=== PATIENT | male | born 1945 | race Caucasian/White ===

== ENCOUNTER 2022-09-14 13:55 | Emergency (ER) | payer OTHER, MEDICARE, SELFPAY ==
[2022-09-14 14:17] VITALS: BP 175/78; PULSE 66; RESP 16; TEMP 36.8; O2SAT 94; BMI 26.6
--- NOTE | 2022-09-14 14:23 | DI.RAD.S_ITS ---
PROCEDURE: XR HAND LT MIN 3V INDICATIONS: deep laceration with saw TECHNIQUE: 3 views of the hand(s) acquired. COMPARISON: None. FINDINGS: Bones: No fractures or dislocations. Carpal bones are normally aligned. No suspicious bony lesions. Degenerative arthritis at the 1st carpometacarpal joint. Soft tissues: No suspicious soft tissue calcifications. The in our eminence soft tissue laceration. No soft tissue gas or radiopaque foreign body. IMPRESSION: No evidence acute bony abnormality. Dictated by: Americo Amezquita M.D. on 09/14/2022 at 14:56 Approved by: Americo Amezquita M.D. on 09/14/2022 at 14:57
[2022-09-14] MEDS: LIDOCAINE 1% (PF) 5 ML INJ (15:14)
[2022-09-14 15:31] VITALS: BP 104/57; PULSE 48; RESP 18; O2SAT 99
[2022-09-14] MEDS: ONDANSETRON 4 MG ODT PO (15:31)
--- NOTE | 2022-09-14 16:02 | ED.WOUNDLAC ---
HPI - Wound/Laceration <Belgica Grimaldo PA-C - Last Filed: 09/15/22 10:12> General Chief Complaint: Wound/Laceration Stated Complaint: laceration hand t-0 Time Seen by Provider: 09/14/22 14:26 Source: patient Mode of arrival: Ambulatory History of Present Illness HPI narrative: 77-year-old male presents to the ED status post a laceration sustained just prior to arrival. Patient was at work using a table saw, when he accidentally injured his left palm. Patient denies numbness, tingling, weakness. Patient endorses he can move all his fingers normally. Bleeding has been controlled with pressure. Patient's tetanus is up-to-date. Related Data Previous Rx's Medication Instructions Recorded sulfamethoxazole 800 1 tab PO BID #20 tabs 09/17/22 mg-trimethoprim 160 mg tablet (Bactrim DS) Allergies Allergy/AdvReac Type Severity Reaction Status Date / Time Tetracyclines AdvReac Mild Verified 09/17/22 11:00 Review of Systems <Belgica Grimaldo PA-C - Last Filed: 09/15/22 10:12> Review of Systems ROS Unobtainable: All systems reviewed & are unremarkable except as noted in HPI and below Constitutional Constitutional: Denies chills, Denies fatigue, Denies fever(s), Denies frequent falls, Denies lethargy and Denies weakness Eyes Eyes: Denies change in vision, Denies eye discharge, Denies irritation and Denies loss of vision ENT Ears, Nose, Mouth, and Throat: Denies change in voice, Denies dizziness, Denies neck pain, Denies sore throat and Denies throat swelling Cardiovascular Cardiovascular: Denies chest pain, Denies irregular heart rhythm, Denies lightheadedness, Denies palpitations, Denies dyspnea, Denies dyspnea on exertion and Denies orthopnea Respiratory Respiratory: Denies cough, Denies dyspnea, Denies dyspnea on exertion and Denies wheezing Gastrointestinal Gastrointestinal: Denies abdominal pain, Denies change in bowel habits, Denies diarrhea, Denies nausea and Denies vomiting Genitourinary Genitourinary: Denies hematuria, Denies flank pain, Denies urinary incontinence and Denies urinary urgency Musculoskeletal Musculoskeletal: Denies back pain, Denies muscle weakness, Denies neck pain, Denies numbness and Denies tingling Integumentary/Breasts Skin/Breast: Denies pruritus, Denies erythema, Denies rash and Reports wounds Neurologic Neurologic: Denies behavioral changes, Denies confusion, Denies dizziness, Denies frequent falls, Denies loss of vision, Denies numbness, Denies tingling and Denies weakness Psychiatric Psychiatric: Denies anxiety, Denies behavioral changes, Denies confusion, Denies depression, Denies homicidal ideation and Denies suicidal ideation Endocrine Endocrine: Denies fatigue, Denies flushing and Denies palpitations Hematologic/Lymphatic Hematologic/Lymphatic: Denies easy bruising Allergic/Immunologic Allergic/Immunologic: Denies urticaria, Denies throat swelling and Denies wheezing Patient History <Blegica Grimaldo PA-C - Last Filed: 09/15/22 10:12> Medical History Chicken pox GERD (gastroesophageal reflux disease) (~2009) Mumps Surgical History Anesthesia History of colonoscopy Family History Father Parkinson's disease Social History Smoking Status: Former smoker Smoking Status: Former smoker alcohol intake frequency: 0-2 drinks per day Exam <Belgica Grimaldo PA-C - Last Filed: 09/15/22 10:12> Narrative Exam Narrative: Const General:?cooperative, healthy appearing and comfortable [facility] Head:?normal to inspection Ears:?hearing grossly normal bilaterally Nose:?external nose normal Face and sinus:?normal facial exam and sinuses nontender Mouth:?oral mucosae normal Throat:?posterior oropharynx normal Eyes General:?appearance normal, both eyes and all related structures Neck Neck:?normal visual inspection and no lymphadenopathy noted Resp Effort & Inspection:?normal respiratory effort Auscultation:?clear to auscultation bilaterally Cardio Rate:?regular rate Rhythm:?regular rhythm Integumentary 5 cm linear laceration to left thenar eminence. No deeper structures visualized on exam. Strength and sensation is intact. There is full range of motion. Patient is neurovascularly intact. Bleeding is controlled with pressure. Neuro General:?patient alert, patient awake and patient oriented x3 Initial Vital Signs Initial Vital Signs: Vital Signs Temperature 98.2 F 09/14/22 14:17 Pulse Rate 66 09/14/22 14:17 Respiratory Rate 16 09/14/22 14:17 Blood Pressure 175/78 H 09/14/22 14:17 Pulse Oximetry 94 09/14/22 14:17 Oxygen Delivery Method Room Air 09/14/22 14:17 <Hardeep Wright MD - Last Filed: 09/19/22 12:36> Initial Vital Signs Initial Vital Signs: Vital Signs Temperature 98.2 F 09/14/22 14:17 Pulse Rate 66 09/14/22 14:17 Respiratory Rate 16 09/14/22 14:17 Blood Pressure 175/78 H 09/14/22 14:17 Pulse Oximetry 94 09/14/22 14:17 Oxygen Delivery Method Room Air 09/14/22 14:17 Procedures <Belgica Grimaldo PA-C - Last Filed: 09/15/22 10:12> Laceration Repair Laceration 1: Site: hand Side (If applicable): left Size (cm): 5 Local Anesthetic: lidocaine 1% Amount of anesthesia used (mL): 4 Pre-repair: wound explored, irrigated extensively and deep structures intact Skin layer closed with: vicryl Skin layer suture size: 4-0 Number of sutures: 6 Technique: simple, interrupted Subcutaneous layer closed with: chromic gut Subcutaneous layer suture size: 5-0 Number of sutures: 6 Technique: simple, interrupted Course <Belgica Grimaldo PA-C - Last Filed: 09/15/22 10:12> Orders Ordered: Discontinued Medications Bacitracin (Bacitracin Oint 0.9 Gm Pckt) 3 applic TOP NOW ONE Stop: 09/14/22 15:56 Last Admin: 09/14/22 16:06 Dose: 3 applic Documented By: MAGY Lidocaine HCl (Lidocaine 1% (Pf) 5 Ml) 5 ml INJ NOW ONE Stop: 09/14/22 15:14 Last Admin: 09/14/22 15:14 Dose: 5 ml Documented By: SUSANA Ondansetron HCl (Ondansetron 4 Mg Odt) 4 mg PO NOW ONE Stop: 09/14/22 15:30 Last Admin: 09/14/22 15:31 Dose: 4 mg Documented By: CTS Vital Signs Vital signs: Vital Signs - 8 hr 09/14/22 14:17 09/14/22 15:31 Temperature 98.2 F Pulse Rate 66 48 L Respiratory Rate 16 18 Blood Pressure 175/78 H 104/57 L Pulse Oximetry 94 99 Oxygen Delivery Method Room Air Room Air <Hardeep Wright MD - Last Filed: 09/19/22 12:36> Orders Ordered: Discontinued Medications Bacitracin (Bacitracin Oint 0.9 Gm Pckt) 3 applic TOP NOW ONE Stop: 09/14/22 15:56 Last Admin: 09/14/22 16:06 Dose: 3 applic Documented By: MAGY Lidocaine HCl (Lidocaine 1% (Pf) 5 Ml) 5 ml INJ NOW ONE Stop: 09/14/22 15:14 Last Admin: 09/14/22 15:14 Dose: 5 ml Documented By: SUSANA Ondansetron HCl (Ondansetron 4 Mg Odt) 4 mg PO NOW ONE Stop: 09/14/22 15:30 Last Admin: 09/14/22 15:31 Dose: 4 mg Documented By: SUSANA Vital Signs Vital signs: Vital Signs - 8 hr 09/14/22 14:17 09/14/22 15:31 Temperature 98.2 F Pulse Rate 66 48 L Respiratory Rate 16 18 Blood Pressure 175/78 H 104/57 L Pulse Oximetry 94 99 Oxygen Delivery Method Room Air Room Air MDM - Wound/Laceration <Belgica Grimaldo PA-C - Last Filed: 09/15/22 10:12> MDM Narrative Medical decision making narrative: 77-year-old male presents to the ED status post a laceration sustained just prior to arrival. X-ray was obtained to rule out fracture/dislocation/foreign bodies. X-ray without acute findings. Laceration was repaired with sutures. Deeper sutures are dissolvable, whereas skin level sutures are not dissolvable, will need to be removed in 7-10 days. Patient complained nausea, lightheadedness during the procedure. Patient was given Zofran, help to recline more. Patient's symptoms resolved after this and he tolerated the procedure well. Wound care, signs of infection discussed with patient. ED return precautions discussed with patient. Patient verbalized understanding. Discharge Plan Departure Patient Disposition: Home Clinical Impression: Laceration Instructions: DI for Laceration Repair Activity Restrictions/Additional Instructions: You were evaluated in the ED today for a laceration sustained earlier today. Your laceration was sutured, and the top layer of sutures is nondysarthric verbal which will need to be removed in 7-10 days. You may return to the ED, go to your PCP or an urgent care clinic to get the sutures removed. There are also some dissolvable sutures in the deeper layers that do not need to be removed. Please watch for signs of infections including worsening redness, warmth, discharge, swelling, pain. Return to the ED if you note any signs of infection. You were given a tetanus shot earlier today at the primary care clinic. Please keep the wound clean and dry for the 1st 24 hours, following which you may wash gently with soap and water and dry well. Please do not keep any wet dressings on for any length of time. Prescriptions: No Action sulfamethoxazole-trimethoprim [Bactrim DS] 800-160 mg tablet 1 tab PO BID Qty: 20 0RF Rx Instructions: for 10 days for hand infection Referrals: Divya Lopez PA-C [Primary Care Provider] - Stand Alone Forms: Patient Portal/API <Hardeep Wright MD - Last Filed: 09/19/22 12:36> Cosign ED Attending Coskatarinaature Attestation: I was immediately available in the department for consultation. This documentation has been reviewed and I agree with assessment and plan. Supervised by Hardeep Wright MD
[2022-09-14] MEDS: BACITRACIN OINT 0.9 GM PCKT 3 APPLIC TOP (16:06)
[2022-09-14 16:07] VITALS: BP 122/77; PULSE 66; RESP 15
== END 2022-09-14 16:23 | disposition home or self-care (01) ==
PROVIDERS: Emergency Provider Student in an Organized Health Care Education/Training Program; PCP Physician Assistant
DX: S61.412A Laceration without foreign body of left hand, initial encounter (principal); W27.0XXA Contact with workbench tool, initial encounter; Y99.0 Civilian activity done for income or pay
CPT/HCPCS: 12002; 73130; 99283; 99284